=== PATIENT | male | born 1955 | race Hispanic/Latino ===

== ENCOUNTER 2025-01-04 10:23 | Emergency (ER) | payer OTHER ==
[2025-01-04] MEDS ORDERED: NA CHLORIDE 0.9% 1,000 ML ONE (10:45)
[2025-01-04] MEDS ORDERED: ONDANSETRON 4 MG/2 ML VIAL ONE (10:45)
[2025-01-04] MEDS ORDERED: MECLIZINE HCL 12.5 MG TAB ONE (10:45)
--- NOTE | 2025-01-04 11:09 | RAD REPORT ---
Procedure: Chest Single View HISTORY: Chest pain COMPARISON: 2012 FINDINGS: The lungs appear clear of acute infiltrate. No significant pleural effusion noted. The heart is normal size. IMPRESSION: No acute abnormality is displayed.
[2025-01-04 11:15] LABS: Absolute Lymphocytes (CBC) 3.0 K/uL (0.7-4.9); Hematocrit 37.3 % (39.6-49.0); Hemoglobin 12.1 g/dL (13.6-17.9); MCH 27.4 pg (27.0-35.0); MCHC 32.5 g/dL (32.0-36.0); MCV 84.3 fL (80-100); MPV 9.1 fL (7.6-11.3); Nucleated RBC Absolute Count 0.0 (0-0); Nucleated Red Blood Cells % 0.0 % (0-0); RBC Red Blood Cell Count 4.42 M/uL (4.33-5.43); White Blood Count 12.50 thou/uL (4.3-10.9)
--- NOTE | 2025-01-04 11:18 | RAD REPORT ---
EXAM: CT brain without contrast HISTORY: Dizziness COMPARISON: None TECHNIQUE: Multiple contiguous axial images were obtained and a CT of the brain without contrast.. Sagittal and coronal reconstruction performed. Automated exposure control, adjustment of the mA and/or kV according to patient size, and/or iterative reconstruction. Unless otherwise specified, incidental f indings do not require dedicated imaging follow-up FINDINGS: An intracranial bleed is not seen Ventricles are normal caliber No extra-axial fluid collection noted No significant hypodensity within the brain No fluid within the visualized sinuses or mastoids noted.. 7 mm osteoma ethmoid sinus IMPRESSION: No acute intracranial abnormality noted. If the patient continues to have symptoms to suggest an acute intracranial abnormality then MRI of th e brain would be recommended.
[2025-01-04 11:25] LABS: PT Prothrombin Time 12.2 SECONDS (10-13.0); Protime INR 1.08
[2025-01-04 11:38] LABS: ALT/SGPT 28 U/L (16-61); AST/SGOT 14 U/L (15-37); Albumin 3.5 g/dL (3.4-5.0); Albumin/Globulin Ratio 0.9 (1.1-1.8); Alkaline Phosphatase 48 U/L (45-117); Anion Gap 10.1 mEq/L (5.0-15.0); BUN Blood Urea Nitrogen 22 mg/dL (7-18); Globulin 3.9 g/dL (2.3-3.5); Glucose Level 157 mg/dL (74-106); Magnesium 1.3 mg/dL (1.6-2.4); NT PRO-BNP 90 pg/mL (<125); Potassium 3.1 mEq/L (3.5-5.1); Troponin High Sensitivity 5.1 pg/mL (<58.9)
[2025-01-04 11:43] LABS: Bilirubin Indirect, Calculated 0.2 mg/dL (0.2-0.8)
[2025-01-04] MEDS ORDERED: POTASSIUM CL SA 10 MEQ TAB PO ONE (11:50)
[2025-01-04] MEDS ORDERED: MAGNESIUM SULFATE 1 gm IVPB 1 GM/100 ML BAG IV ONE (11:51)
--- NOTE | 2025-01-04 12:06 | ER ---
Nurse's Notes [facility] Name: Ryan Hylton Age: 69 yrs Sex: Male : 1955 Arrival Date: 01/04/2025 Time: 10:23 Bed 15 Private MD: Diagnosis: Dizziness and giddiness;Hypokalemia;Hypomagnesemia Presentation: 01/04 10:29 Chief complaint: Patient states: dizziness and n/v that started this morning. me1 Coronavirus screen: Vaccine status: Patient reports receiving the 2nd dose of the covid vaccine. Ebola Screen: No symptoms or risks identified at this time. Initial Sepsis Screen: Does the patient meet any 2 criteria? HR > 90 bpm. Does the patient have a suspected source of infection? No. Patient's initial sepsis screen is negative. Risk Assessment: Do you want to hurt yourself or someone else? Patient reports no desire to harm self or others. Onset of symptoms was January 05, 2025. 10:29 Method Of [place] [facility] [place] Acuity: SELVIN 3 me1 Triage Assessment: 11:00 GI: Reports nausea. kb4 11:00 General: Appears in no apparent distress. comfortable, Behavior is calm, cooperative. kb4 Historical: - Allergies: 10:31 No Known Allergies; me1 - PMHx: 10:31 Hypertensive disorder; Diabetes mellitus; vertigo; me1 - PSHx: 10:31 Repair of inguinal hernia; me1 - Immunization history:: Adult Immunizations up to date. - Infectious Disease History:: Denies. - Social history:: Smoking status: Patient denies any tobacco usage or history of. Screenin:10 [facility] ED Fall Risk Assessment (Adult) History of falling in the last 3 months, kb4 including since admission No falls in past 3 months (0 pts) Confusion or Disorientation No (0 pts) Intoxicated or Sedated No (0 pts) Impaired Gait No (0 pts) Mobility Assist Device Used No (0 pt) Altered Elimination No (0 pt) Score/Fall Risk Level 0 - 2 = Low Risk Oriented to surroundings, Maintained a safe environment. Abuse screen: Denies threats or abuse. Denies injuries from another. Nutritional screening: No deficits noted. Tuberculosis screening: No symptoms or risk factors identified. Assessment: 11:00 Pain: Complains of pain in DIZZINESS Pain currently is 6 out of 10 on a pain scale. kb4 11:00 General: Appears in no apparent distress. uncomfortable, Behavior is calm, cooperative. kb4 Neuro: Level of Consciousness is awake, alert, obeys commands, Oriented to person, place, time, situation. Cardiovascular: Patient's skin is warm and dry. Respiratory: Airway is patent Respiratory effort is even, unlabored, Respiratory pattern is regular, symmetrical. GI: Abdomen is round. Derm: Skin is pink, warm \T\ dry. 11:16 Reassessment: WARM BLANKET GIVEN AND LIGHTS DIMMED. kb4 11:36 Reassessment: NO LONGER C/O DIZZINESS AND NAUSEA, MED INTERVENTIONS EFFECTIVE. kb4 11:36 Reassessment: Patient and/or family updated on plan of care and expected duration. Pain kb4 level reassessed. Patient is alert, oriented x 3, equal unlabored respirations, skin warm/dry/pink. 12:10 Reassessment: Patient and/or family updated on plan of care and expected duration. Pain kb4 level reassessed. Patient is alert, oriented x 3, equal unlabored respirations, skin warm/dry/pink. Patient denies pain at this time. 12:30 Reassessment: waiting for mag to finish infusing before d/c. kb4 13:03 Reassessment: Patient and/or family updated on plan of care and expected duration. Pain kb4 level reassessed. Patient is alert, oriented x 3, equal unlabored respirations, skin warm/dry/pink. Patient states feeling better. Patient states symptoms have improved. Vital Signs: 10:29 BP 180 / 94; Pulse 102; Resp 18; Temp 98.4; Pulse Ox 98% ; Weight 83.91 kg; Height 5 me1 ft. 6 in. ; Pain 0/10; 11:36 BP 139 / 80; Pulse 59; Resp 16; Pulse Ox 100% on R/A; kb4 12:09 BP 150 / 81; Pulse 65; Resp 16; Pulse Ox 100% on R/A; kb4 13:03 BP 151 / 81; Pulse 62; Resp 16; Pulse Ox 100% ; kb4 10:29 Body Mass Index 29.86 (83.91 kg, 167.64 cm) [facility] [place] Pain Scale: Adult wa1 ED Course: 10:25 Patient arrived in ED. mr 10:26 [facility] Ordone[facility] sb4 10:26 Sammy Mariscal MD is Attending Physician. sb4 10:31 Triage completed. me1 10:31 Arm band placed on Patient placed in an exam room. me1 10:43 Reina Lau, RN is Primary Nurse. kb4 10:49 XRAY Chest (1 view) In Process Unspecified. EDMS 10:51 Head Brain Wo Cont CT In Process Unspecified. EDMS 11:00 EKG done, by ED staff, reviewed by Farheen Ordonez PA-C. Inserted saline lock: 20 gauge in kb4 right antecubital area, using aseptic technique. Blood collected. Flushed with 10 mL NS. 12:10 Patient has correct armband on for positive identification. Provided Education on: D/C kb4 INSTRUCTIONS . 12:10 No provider procedures requiring assistance completed. kb4 13:13 IV discontinued, intact, bleeding controlled, No redness/swelling at site. Pressure kb4 dressing applied. Administered Medications: 11:13 Drug: Ondansetron IVP 4 mg IVP once; over 2 minutes Route: IVP; Site: right antecubital;kb4 11:42 Follow up: Response: No adverse reaction kb4 11:13 Drug: NS 0.9% IV 1000 ml IV at 1000 ml once; to be given as a bolus over 60 minutes kb4 Route: IV; Rate: 1000 ml; Site: right antecubital; 11:13 Drug: Meclizine PO 50 mg PO once Route: PO; kb4 11:42 Follow up: Response: No adverse reaction kb4 11:56 Drug: Magnesium Sulfate IVPB 1 grams IVPB once over 1 hrs Route: IVPB; Infused Over: 1 kb4 hrs; Site: right antecubital; 11:56 Drug: Potassium Chloride PO 40 mEq PO once Route: PO; kb4 12:12 Follow up: Response: No adverse reaction kb4 Medication: 12:11 VIS not applicable for this client. kb4 Outcome: 12:06 Discharge ordered by . sb4 13:13 Discharged to home ambulatory, kb4 13:13 Condition: good 13:13 Discharge instructions given to patient, family, Instructed on discharge instructions, follow up and referral plans. medication usage, Demonstrated understanding of instructions, follow-up care, medications, Prescriptions given X 1, 13:15 Patient left the ED. kb4 Signatures: Dispatcher [employer] EDMS Charles Emily, Reg Reg mr Farheen Ordonez, RASHEL KIESR sb4 Julia Harvey RN RN me1 Reina Lau RN RN kb4 Corrections: (The following items were deleted from the chart) 10:32 10:31 PSHx: None; me1 me1
--- NOTE | 2025-01-04 12:06 | EDPHYS ---
Physician Documentation [facility] Name: Ryan Hylton Age: 69 yrs Sex: Male : 1955 Arrival Date: 01/04/2025 Time: 10:23 Bed 15 Private MD: ED Physician Sammy Mariscal HPI: 01/04 10:42 This 69 yrs old Male presents to ER via Wheelchair with complaints of Nausea, sb4 Dizziness. 10:42 Patient reports nausea, vomiting, and dizziness that began this morning. However, sb4 states that he was dizzy a few days ago. Does report a history of vertigo. States he feels like "there is nothing in his brain "denies any chest pain or shortness of breath. Reports compliance with all of his medications. Denies any head trauma. Historical: - Allergies: 10:31 No Known Allergies; me1 - PMHx: 10:31 Hypertensive disorder; Diabetes mellitus; vertigo; me1 - PSHx: 10:31 Repair of inguinal hernia; me1 - Immunization history:: Adult Immunizations up to date. - Infectious Disease History:: Denies. - Social history:: Smoking status: Patient denies any tobacco usage or history of. ROS: 10:42 Constitutional: Negative for fever, chills, and weight loss, sb4 10:42 Abdomen/GI: Positive for nausea and vomiting, 10:42 Neuro: Positive for dizziness, 10:42 All other systems are negative, Exam: 10:42 Head/Face: Normocephalic, atraumatic. Eyes: Extra-ocular motions intact. Periorbital sb4 areas with no swelling, redness, or edema. ENT: Mucous membranes moist. Cardiovascular: Regular rate and rhythm with a normal S1 and S2. Respiratory: No increased work of breathing, no retractions or nasal flaring. Abdomen/GI: Soft, non-tender, no distension. Skin: Warm, dry with normal turgor. Normal color with no rashes, no lesions, and no evidence of cellulitis. 10:42 Constitutional: The patient appears alert, awake, uncomfortable, Vital Signs: 10:29 BP 180 / 94; Pulse 102; Resp 18; Temp 98.4; Pulse Ox 98% ; Weight 83.91 kg; Height 5 me1 ft. 6 in. ; Pain 0/10; 11:36 BP 139 / 80; Pulse 59; Resp 16; Pulse Ox 100% on R/A; kb4 12:09 BP 150 / 81; Pulse 65; Resp 16; Pulse Ox 100% on R/A; kb4 13:03 BP 151 / 81; Pulse 62; Resp 16; Pulse Ox 100% ; kb4 10:29 Body Mass Index 29.86 (83.91 kg, 167.64 cm) me1 10:29 Pain Scale: Adult me1 MDM: 10:29 Medical Screening Exam initiated sb4 10:45 Differential diagnosis: hypovolemia, vertigo, intracranial mass, electrolyte sb4 abnormality, hypoglycemia, hyperglycemia, abnormal EKG, ACS, cardiac arrhythmia. Historians other than the Patient: Spouse/Significant Other: . Care significantly affected by the following chronic conditions: Diabetes, Hypertension. 11:51 Data reviewed: vital signs, nurses notes, lab test result(s), EKG, radiologic studies, sb4 and as a result, I will discharge patient. Counseling: I had a detailed discussion with the patient and/or guardian regarding the historical points, exam findings, and any diagnostic results supporting the discharge/admit diagnosis, the presence of at least one elevated blood pressure reading (>120/80) during this emergency department visit, lab results, radiology results, the need for outpatient follow up, for definitive care, to return to the emergency department if symptoms worsen or persist or if there are any questions or concerns that arise at home. 01/04 10:36 Order name: Basic Metabolic Panel; Complete Time: 11:44 sb4 01/04 10:36 Order name: CBC with Diff; Complete Time: 11:23 sb4 01/04 10:36 Order name: LFT's; Complete Time: 11:44 sb4 01/04 10:36 Order name: Magnesium; Complete Time: 11:44 sb4 01/04 10:36 Order name: NT PRO-BNP; Complete Time: 11:44 sb4 01/04 10:36 Order name: PT-INR; Complete Time: 11:34 sb4 01/04 10:36 Order name: Troponin HS; Complete Time: 11:44 sb4 01/04 10:36 Order name: XRAY Chest (1 view); Complete Time: 11:10 sb4 01/04 10:42 Order name: Head Brain Wo Cont CT; Complete Time: 11:19 sb4 01/04 10:36 Order name: EKG; Complete Time: 10:37 sb4 01/04 10:36 Order name: Cardiac monitoring; Complete Time: 11: sb4 01/04 10:36 Order name: EKG - Nurse/Tech; Complete Time: 11:03 sb4 01/04 10:36 Order name: IV Saline Lock; Complete Time: 11: sb4 01/04 10:36 Order name: Labs collected and sent; Complete Time: 11: sb4 01/04 10:36 Order name: O2 Per Protocol; Complete Time: 11: sb4 01/04 10:36 Order name: O2 Sat Monitoring; Complete Time: 11: sb4 EC:01 Rate is 56 beats/min. Rhythm is regular, Sinus bradycardia. MS interval is normal at sb4 162 msec. QRS interval is normal at 100 msec. QT interval is normal at 446 msec. No Q waves. T waves are Normal. No ST changes noted. Clinical impression: Sinus bradycardia. Interpreted by me. Reviewed by me. Administered Medications: 11:13 Drug: Ondansetron IVP 4 mg IVP once; over 2 minutes Route: IVP; Site: right antecubital;kb4 11:42 Follow up: Response: No adverse reaction kb4 11:13 Drug: NS 0.9% IV 1000 ml IV at 1000 ml once; to be given as a bolus over 60 minutes kb4 Route: IV; Rate: 1000 ml; Site: right antecubital; 11:13 Drug: Meclizine PO 50 mg PO once Route: PO; kb4 11:42 Follow up: Response: No adverse reaction kb4 11:56 Drug: Magnesium Sulfate IVPB 1 grams IVPB once over 1 hrs Route: IVPB; Infused Over: 1 kb4 hrs; Site: right antecubital; 11:56 Drug: Potassium Chloride PO 40 mEq PO once Route: PO; kb4 12:12 Follow up: Response: No adverse reaction kb4 Disposition: 18:13 Co-signature as Attending Physician, Sammy Mariscal MD I reviewed the patient's care rn provided by the Advanced Practice Provider and agree with the diagnosis and treatment plan. Disposition Summary: 01/04/25 12:06 Discharge Ordered Notes: Location: Home sb4 Problem: new sb4 Symptoms: have improved sb4 Condition: Stable sb4 Diagnosis - Dizziness and giddiness sb4 - Hypokalemia sb4 - Hypomagnesemia sb4 Followup: sb4 - With: Private Physician - When: As needed - Reason: Recheck today's complaints, Re-evaluation by your physician Discharge Instructions: - Discharge Summary Sheet sb4 - Hypomagnesemia sb4 - Hypokalemia sb4 - Dizziness, [id number] sb4 Forms: - Patient Portal Instructions sb4 - Leadership Thank You Letter sb4 Prescriptions: - Meclizine 25 mg Oral Tablet - take 1 tablet ORAL route every 8 hours As needed; 30 tablet; Refills: 0, sb4 Product Selection Permitted Signatures: Dispatcher [employer] EDMS Sammy Mariscal MD MD rn Brown, Sophia, PA-C PA-C sb4 Julia Harvey RN RN me1 Reina Lau RN RN kb4 Corrections: (The following items were deleted from the chart) 10:32 10:31 PSHx: None; me1 me1
[2025-01-04 13:54] VITALS: TEMP 98.4
[2025-01-04 14:00] VITALS: O2SAT 100
[2025-01-04 14:07] VITALS: BP 151/81
== END 2025-01-04 13:15 | disposition home or self-care (01) ==
LOC: ER 10:23
DX: E83.42 Hypomagnesemia (principal); E87.6 Hypokalemia; R11.2 Nausea with vomiting, unspecified; R42 Dizziness and giddiness; I10 Essential (primary) hypertension; E11.9 Type 2 diabetes mellitus without complications
CPT/HCPCS: 93005; 85025; 80048; 36415; 83735; 85610; 80076; 84484; 83880; 70450; 71045; 96375; 96374; 99284; J8597; J3475; J2405; J7030